=== PATIENT | female | born 1965 | race African-American/Black ===

== ENCOUNTER 2017-11-19 12:27 | Emergency (ER) | payer MEDICARE, MEDICAID ==
[~2017-11-19] VITALS: Ht 182.9 cm; Wt 86.2 kg
[~2017-11-19 12:27] MED LIST: ACETAMINOPHEN-1 EAC1 ORAL; ASPIR 8181 MG ORAL; BP pill; CLARITIN-D 241 EACH PO; COLACE100 MG ORAL; COUMADIN5 MG PO; CYCLOBENZAPRINE10 MG ORAL; Coumadin; FLEXERIL5 MG PO; HYDROCHLOROTHIA25 MG ORAL; IBUPROFEN600 MG ORAL; METOPROLOL TART25 MG PO; MOTRIN600 MG PO; NORCO 5-325 TA1 EACH ORAL; NORCO 5-325 TA1 EACH PO; PAXIL10 MG ORAL; SIMVASTATIN40 MG PO; SYNTHROID50 MCG PO; TAPAZOLE10 MG ORAL
[2017-11-19 12:50] VITALS: BP 141/95
[2017-11-19] MEDS ORDERED: Norco 5mg/325mg tab ORAL ONE (13:30)
[2017-11-19] MEDS ORDERED: Ketorolac 30mg Inj IM ONE (13:30)
[2017-11-19 13:48] LABS: BASOPHILS % (AUTO) 0.7 % (0.0-2.0); EOSINOPHILS % (AUTO) 0.6 % (0.0-3.0); HEMATOCRIT 40.1 % (37.0-47.0); HEMOGLOBIN 13.4 G/DL (12.0-16.0); LYMPHOCYTES % (AUTO) 21.2 % (20.0-45.0); MEAN CORPUSCULAR VOLUME 87 FL (80-99); MONOCYTES % (AUTO) 3.1 % (1.0-10.0); NEUTROPHILS % (AUTO) 74.5 % (45.0-75.0); PLATELET COUNT 178 K/UL (150-450); RED BLOOD COUNT 4.61 M/UL (4.20-5.40); RED CELL DISTRIBUTION WIDTH 13.3 % (11.6-14.8); WHITE BLOOD COUNT 4.5 K/UL (4.8-10.8)
[2017-11-19 13:53] LABS: APPEARANCE,URINE CLEAR; BILIRUBIN, URINE NEGATIVE (NEGATIVE); COLOR,URINE PALE YELLOW; GLUCOSE, URINE (UA) NEGATIVE (NEGATIVE); KETONES,URINE NEGATIVE (NEGATIVE); LEUKOCYTE ESTERASE ,URINE NEGATIVE (NEGATIVE); NITRITE,URINE NEGATIVE (NEGATIVE); PH,URINE 6.5 (4.5-8.0); PROTEIN,URINE 2+ (NEGATIVE); UROBILINOGEN,URINE NORMAL MG/DL (0.0-1.0)
[2017-11-19 14:20] LABS: ANION GAP 10 mmol/L (5-15); BLOOD UREA NITROGEN 13 mg/dL (7-18); CALCIUM 9.8 MG/DL (8.5-10.1); CARBON DIOXIDE 26 MMOL/L (21-32); CHLORIDE 104 MMOL/L (98-107); POTASSIUM 3.7 MMOL/L (3.5-5.1); SODIUM 140 MMOL/L (136-145)
[2017-11-19 14:25] LABS: ALANINE AMINOTRANSFERASE 13 U/L (12-78); ALBUMIN 4.2 G/DL (3.4-5.0); ALKALINE PHOSPHATASE 112 U/L (46-116); ASPARTATE AMINO TRANSFERASE 13 U/L (15-37); BILIRUBIN,TOTAL 0.6 MG/DL (0.2-1.0)
--- NOTE | 2017-11-19 14:33 | Emergency Room Report ---
History of Present Illness General Chief Complaint: Pain Source: Patient Present Illness HPI 52-year-old female patient presents ER complaining of right-sided inguinal pain for the past 3 days. states pain began after moving some boxes from her apartment. Reports history of inguinal hernia surgery in 2013. Reports pain in the same area. Reports able to pass gas and bowel movements are normal. Denies fever, chest pain, shortness of breath. Reports pain with ambulation. denies dysuria, hematuria. presents history of left knee pain that she states "may be exacerbating" her right inguinal pain. Reports history of fracture multiple years ago and had knee replacement. Reports had a second procedure done on October 09 and is scheduled for another procedure to have surgery and knee replaced again . patient reports normally walks with a cane or walker. Allergies: Coded Allergies: No Known Allergies (Verified , 03/05/17) Patient History Past Medical History: see triage record Now: No Reviewed Nursing Documentation: PMH: Agreed; PSxH: Agreed Nursing Documentation-PMH Hx Hypertension: Yes Review of Systems All Other Systems: negative except mentioned in HPI Physical Exam Vital Signs Date Time Temp Pulse Resp B/P (MAP) Pulse Ox O2 Delivery O2 Flow Rate FiO2 11/19/17 12:31 97.9 70 22 141/95 100 Room Air 97.9 Sp02 EP Interpretation: reviewed, normal General Appearance: well appearing, no apparent distress, alert, GCS 15, non- toxic Head: normocephalic, atraumatic Eyes: bilateral eye normal inspection, bilateral eye PERRL ENT: hearing grossly normal, normal pharynx, no angioedema, normal voice, uvula midline, moist mucus membranes Neck: full range of motion Respiratory: lungs clear, normal breath sounds, no rhonchi, no respiratory distress, no accessory muscle use, no wheezing, speaking full sentences Cardiovascular #1: regular rate, rhythm, no edema Gastrointestinal: non tender, soft, no mass, non-distended, no guarding, no rebound Genitourinary: no CVA tenderness, other - no palpable or visible hernia Musculoskeletal: back normal, digits/nails normal, gait/station normal, normal range of motion, no calf tenderness, pelvis stable, other - no leg length discrepancy, tender - right inguinal region Neurologic: alert, oriented x3, responsive, motor strength/tone normal, sensory intact Psychiatric: mood/affect normal Skin: no rash Medical Decision Making PA Attestation Dr. Le is my supervising Physician whom patient management has been discussed with. Diagnostic Impression: Primary Impression: Inguinal muscle strain Additional Impressions: Diverticulosis Left inguinal hernia ER Course Pt. presents to the ED c/o right sided inguinal pain for the past few days. Ddx considered but are not limited to inguinal hernia, femoral hernia, UTI, torsion, sprain, strain, muscle spasm, dislocation. patient able to ambulate, no leg length discrepancy, leg not held in adduction or abduction, low suspicion for dislocation or fracture. no abdominal tenderness to palpation, negative Rovsing, low suspicion for appendicitis. Vital signs: are WNL, pt. is afebrile ER COURSE: PE shows no palpable hernia on right inguinal region. Will order CT abdomen pelvis to rule out incarceration or strangulation. Patient with pain medication. CBC and CMP unremarkable, no elevation WBCs or LFTs UA many epithelial cells, negative for infection, low suspicion for UTI CT abdomen and pelvis shows no right inguinal hernia, small left inguinal hernia noted, diverticulosis and renal calcifications noted. Pain symptoms likely due to muscle strain. Will provide medication for patient. Provided with contact information for orthopedic urgent care advise patient to follow-up with PCP and get referral to direct marketing specialist, request referral to physical therapy and pain management as needed. Informed patient that walking with cane on left side may be leading her body to compensate and cause pain symptoms. Advised on use of walker. Discuss results with the patient. Provided patient with copy of results. Instructed patient to followup with PCP and discuss results of report with patient, discuss need for further treatment and referral. advised patient spot with GI specialist, Urology specialist and direct marketing specialist. Followup outpatient.Provided with contact information for Dr. Yeh for surgical consultation as outpatient. Contact offices to schedule appointment. Patient resting comfortably, in no acute distress, nontoxic appearing. Patient reports pain symptoms improved while in the ER. OK for discharge to home. ER precautions given. DISCHARGE: Rx provided for lidocaine patch Rx provided for Tylenol Rx provided for Robaxin At this time pt is stable for d/c to home. Patient is resting comfortably, in no acute distress, nontoxic appearing, talking without difficulty. Patient to take medications as instructed Will provide with patient care instructions and any necessary prescriptions. Care plan and follow-up instructions provided. Patient instructed to follow-up with primary care provider in 3 - 5 days. Patient questions asked and answered. Patient reports understanding and agreement to treatment plan. ER precautions given. Patient instructed to return to ER immediately for any new or worsening of symptoms including but not limited to increasing SOB, persistent fever, chest pain, intractable vomiting. - Please note that this Emergency Department Report was dictated using [employer] final [employer] technology software, occasionally this can lead to erroneous entry secondary to interpretation by the dictation equipment. Labs Test 11/19/17 13:35 White Blood Count 4.5 K/UL (4.8-10.8) Red Blood Count 4.61 M/UL (4.20-5.40) Hemoglobin 13.4 G/DL (12.0-16.0) Hematocrit 40.1 % (37.0-47.0) Mean Corpuscular Volume 87 FL (80-99) Mean Corpuscular Hemoglobin 28.9 PG (27.0-31.0) Mean Corpuscular Hemoglobin Concent 33.3 G/DL (32.0-36.0) Red Cell Distribution Width 13.3 % (11.6-14.8) Platelet Count 178 K/UL (150-450) Mean Platelet Volume 8.9 FL (6.5-10.1) Neutrophils (%) (Auto) 74.5 % (45.0-75.0) Lymphocytes (%) (Auto) 21.2 % (20.0-45.0) Monocytes (%) (Auto) 3.1 % (1.0-10.0) Eosinophils (%) (Auto) 0.6 % (0.0-3.0) Basophils (%) (Auto) 0.7 % (0.0-2.0) Urine Color Pale yellow Urine Appearance Clear Urine pH 6.5 (4.5-8.0) Urine Specific [address] 1.010 (1.005-1.035) Urine Protein 2+ (NEGATIVE) Urine Glucose (UA) Negative (NEGATIVE) Urine Ketones Negative (NEGATIVE) Urine Blood Negative (NEGATIVE) Urine Nitrite Negative (NEGATIVE) Urine Bilirubin Negative (NEGATIVE) Urine Urobilinogen Normal MG/DL (0.0-1.0) Urine Leukocyte Esterase Negative (NEGATIVE) Urine RBC 0-2 /HPF (0 - 2) Urine WBC 0-2 /HPF (0 - 2) Urine Squamous Epithelial Cells Moderate /LPF (NONE/OCC) Urine Bacteria Occasional /HPF (NONE) Urine HCG, Qualitative Negative (NEGATIVE) Sodium Level 140 MMOL/L (136-145) Potassium Level 3.7 MMOL/L (3.5-5.1) Chloride Level 104 MMOL/L (98-107) Carbon Dioxide Level 26 MMOL/L (21-32) Anion Gap 10 mmol/L (5-15) Blood Urea Nitrogen 13 mg/dL (7-18) Creatinine 1.0 MG/DL (0.55-1.30) Estimat Glomerular Filtration Rate > 60 mL/min (>60) Glucose Level 91 MG/DL (74-106) Calcium Level 9.8 MG/DL (8.5-10.1) Total Bilirubin 0.6 MG/DL (0.2-1.0) Aspartate Amino Transf (AST/SGOT) 13 U/L (15-37) Alanine Aminotransferase (ALT/SGPT) 13 U/L (12-78) Alkaline Phosphatase 112 U/L (46-116) Total Protein 8.2 G/DL (6.4-8.2) Albumin 4.2 G/DL (3.4-5.0) Globulin 4.0 g/dL Albumin/Globulin Ratio 1.0 (1.0-2.7) Lipase 94 U/L (73-393) CT/MRI/US Diagnostic Results CT/MRI/US Diagnostic Results : Imaging Test Ordered: CT abdomen and pelvis Impression Impression: Limited assessment of the GI tract, due to lack of enteric contrast administration. Colonic diverticulosis. No evidence of diverticulitis Tiny fat-containing left inguinal hernia. No other inguinal abnormality Right renal calcifications, likely parenchymal and calyceal Other findings as noted, including presumed surgically absent uterus, degenerative spondylosis, cardiac metallic foreign body-incompletely included, presumably postsurgical. Last Vital Signs Date Time Temp Pulse Resp B/P (MAP) Pulse Ox O2 Delivery O2 Flow Rate FiO2 11/19/17 12:31 97.9 70 22 141/95 100 Room Air 97.9 Status: improved Disposition: HOME, SELF-CARE Condition: Stable Scripts Acetaminophen* (TYLENOL EXTRA STRENGTH*) 500 Mg Tablet 500 MG ORAL Q8H PRN for Prn Headache/Temp > 101, #30 TAB 0 Refills Prov: Onur Masters P.Dulce 11/19/17 Methocarbamol* (ROBAXIN*) 500 Mg Tablet 500 MG PO TID, #21 TAB 0 Refills Prov: Onur Masters 11/19/17 Lidocaine (Lidocaine) 1 Each Adh..patch 5 % TP DAILY for 7 Days, #7 PATCH Prov: Onur Masters 11/19/17 Referrals: NON PHYSICIAN (PCP) Patient Instructions: Diverticulosis, Inguinal Hernia, Adult, [id number], Muscle Strain, [id number] Additional Instructions: Patient instructed to follow up with primary care provider 3-5 and discuss further referral and imaging at that time. Discuss referral to PT. Patient instructed on rest, ice and heat. Do not take muscle relaxant prior to drinking, driving, or operating heavy machinery. Followup with GI and surgical services tech. Take medications as directed. Patient questions asked and answered. ER precautions given, patient instructed to return to ER immediately for any new or worsening of symptoms. Onur Masters Nov 19, 2017 14:33
[2017-11-19] MEDS ORDERED: Morphine Sulfate 4mg/ml Inj (IV USE ONLY) IVP ONE (14:45)
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
[2017-11-19] MEDS ORDERED: TYLENOL EXTRA500 MG ORAL (15:56)
[2017-11-19] MEDS ORDERED: LIDOCAINE700 M1 TP (15:56)
[2017-11-19] MEDS ORDERED: ROBAXIN500 MG PO (15:56)
--- NOTE | 2017-11-19 16:03 | Diagnostic Imaging Report ---
Indication: Abdominal pain, right-sided inguinal pain Technique: Spiral acquisitions obtained through the abdomen and pelvis. No oral contrast utilized, per emergency room physician request No IV contrast utilized, per referring physician request.. Multiplanar reconstructions were generated. Total dose length product 877.95 mGycm. CTDIvol(s) 17.25 mGy. Dose reduction achieved using automated exposure control Comparison: None Findings: Lack of enteric contrast limits assessment of the GI tract. There are scattered colonic diverticula. No evidence of diverticulitis. Normal appendix. No small bowel distention. No free or loculated intraperitoneal gas or fluid is evident. Distal esophagus, stomach, duodenum are unremarkable. No evidence of inguinal abnormality other than a tiny fat-containing left inguinal hernia.. Lack of IV contrast limits assessment of solid organs. The liver, gallbladder, bile ducts, pancreas, spleen, adrenals are all grossly unremarkable. Left kidney is unremarkable. The right kidney demonstrates calcifications which are more likely parenchymal than calyceal. No hydrocephalus or hydroureter, or ureteral calculi. The bladder is unremarkable. The uterus is not visualized, presumed surgically absent. The included lung bases are clear. The bones demonstrate degenerative spondylosis changes. Surgical hardware is seen in the heart. Impression: Limited assessment of the GI tract, due to lack of enteric contrast administration. Colonic diverticulosis. No evidence of diverticulitis Tiny fat-containing left inguinal hernia. No other inguinal abnormality Right renal calcifications, likely parenchymal and calyceal Other findings as noted, including presumed surgically absent uterus, degenerative spondylosis, cardiac metallic foreign body-incompletely included, presumably postsurgical. The CT scanner at [facility] is accredited by the [employer] and the scans are performed using protocols designed to limit radiation exposure to as low as reasonably achievable to attain images of sufficient resolution adequate for diagnostic evaluation.
[2017-11-19 16:27] VITALS: BP 141/95
== END 2017-11-19 16:27 | disposition home or self-care (01) ==
LOC: EMR 13:41
DX: S39.011A Strain of muscle, fascia and tendon of abdomen, initial encounter (principal); X50.9XXA Other and unspecified overexertion or strenuous movements or postures, initial encounter; Y92.039 Unspecified place in apartment as the place of occurrence of the external cause; K57.30 Diverticulosis of large intestine without perforation or abscess without bleeding; K40.90 Unilateral inguinal hernia, without obstruction or gangrene, not specified as recurrent; I10 Essential (primary) hypertension
CPT/HCPCS: 36415; 74176; 80053; 81003; 81025; 83690; 85025; 96372; 96374; 99284; J2270

== ENCOUNTER 2018-03-29 13:49 | Emergency (ER) | payer MEDICAID, MEDICARE, OTHER ==
[~2018-03-29] VITALS: Ht 180.3 cm; Wt 81.6 kg
[~2018-03-29 13:49] MED LIST changes: +LIDOCAINE700 M1 TP; +ROBAXIN500 MG PO; +TYLENOL EXTRA500 MG ORAL
[2018-03-29] MEDS ORDERED: BRILINTA90 MG PO (13:58)
[2018-03-29] MEDS ORDERED: LEVOTHYROXINE125 MCG ORAL (13:58)
[2018-03-29] MEDS ORDERED: Acetaminophen 500mg (ES) tab PO ONE (14:30)
[2018-03-29] MEDS ORDERED: ROBAXIN-750750 MG PO (15:43)
[2018-03-29] MEDS ORDERED: IBUPROFEN600 MG ORAL (15:43)
[2018-03-29 15:46] VITALS: BP 142/78
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
== END 2018-03-29 15:46 | disposition home or self-care (01) ==
LOC: EMR 14:10
DX: S40.011A Contusion of right shoulder, initial encounter (principal); S80.02XA Contusion of left knee, initial encounter; V43.52XA Car driver injured in collision with other type car in traffic accident, initial encounter; Y92.410 Unspecified street and highway as the place of occurrence of the external cause; I11.0 Hypertensive heart disease with heart failure; I25.2 Old myocardial infarction; Z95.0 Presence of cardiac pacemaker; Z86.73 Personal history of transient ischemic attack (TIA), and cerebral infarction without residual deficits; Z90.710 Acquired absence of both cervix and uterus; Z96.652 Presence of left artificial knee joint
CPT/HCPCS: 99283

== ENCOUNTER 2018-05-01 17:39 | Inpatient (IN) | payer MEDICARE, OTHER ==
[~2018-05-01] VITALS: Ht 180.3 cm; Wt 95.3 kg
[~2018-05-01 17:39] MED LIST changes: +BRILINTA90 MG PO; +LEVOTHYROXINE125 MCG ORAL; +ROBAXIN-750750 MG PO
--- NOTE | 2018-05-01 17:40 | NUR ---
ED Nurse Note: PT WALKED IN TO ER TODAY FROM HOME. AOX4. PT C/O / LEFT SIDED CHEST PAIN RADIATING TO LEFT ARM AND SOB X 3 DAYS AGO. NORMAL SINUS RHYTHM ON MONITOR, RR20 @ 100% O2 SATURATION ON RA. NO SIGNS OF RESPIRATORY DISTRESS OR RETRACTIONS NOTED.
[2018-05-01] MEDS ORDERED: UNOBMED (17:41)
[2018-05-01 17:42] VITALS: BP 162/97
[2018-05-01] MEDS ORDERED: Nitroglycerin Subl 0.4mg tab SL PRN (18:00)
[2018-05-01] MEDS ORDERED: Aspirin Baby 81mg ORAL ONE (18:00)
--- NOTE | 2018-05-01 18:00 | NUR ---
ED Nurse Note: First nitro given to patient
--- NOTE | 2018-05-01 18:05 | NUR ---
ED Nurse Note: 2nd nitro given to patient, patient still complains of chest pain after first round of nitro
--- NOTE | 2018-05-01 18:11 | NUR ---
ED Nurse Note: XRAY AT BEDSIDE.
[2018-05-01 18:20] LABS: BASOPHILS % (AUTO) 0.8 % (0.0-2.0); HEMATOCRIT 36.3 % (37.0-47.0); HEMOGLOBIN 12.2 G/DL (12.0-16.0); LYMPHOCYTES % (AUTO) 42.5 % (20.0-45.0); MEAN CORPUSCULAR VOLUME 86 FL (80-99); MONOCYTES % (AUTO) 4.3 % (1.0-10.0); NEUTROPHILS % (AUTO) 50.4 % (45.0-75.0); PLATELET COUNT 177 K/UL (150-450); RED BLOOD COUNT 4.22 M/UL (4.20-5.40); RED CELL DISTRIBUTION WIDTH 13.5 % (11.6-14.8); WHITE BLOOD COUNT 4.3 K/UL (4.8-10.8)
[2018-05-01 18:26] LABS: ANION GAP 8 mmol/L (5-15); BLOOD UREA NITROGEN 14 mg/dL (7-18); CALCIUM 9.2 MG/DL (8.5-10.1); CARBON DIOXIDE 31 MMOL/L (21-32); CHLORIDE 102 MMOL/L (98-107); CREATININE 0.9 MG/DL (0.55-1.30); POTASSIUM 3.5 MMOL/L (3.5-5.1); SODIUM 140 MMOL/L (136-145)
[2018-05-01 18:43] LABS: ALANINE AMINOTRANSFERASE 15 U/L (12-78); ALBUMIN 3.7 G/DL (3.4-5.0); ALKALINE PHOSPHATASE 121 U/L (46-116); ASPARTATE AMINO TRANSFERASE 12 U/L (15-37); BILIRUBIN,TOTAL 0.3 MG/DL (0.2-1.0); CKMB 1.3 NG/ML (0.0-3.6); CREATINE KINASE 40 U/L (26-308)
--- NOTE | 2018-05-01 18:50 | NUR ---
ED Nurse Note: URINE COLLECTED AND SENT TO LAB.
[2018-05-01] MEDS ORDERED: Albuterol/Ipratropium 3ml neb HHN ONE (19:00)
[2018-05-01 19:13] LABS: APPEARANCE,URINE CLEAR; BILIRUBIN, URINE NEGATIVE (NEGATIVE); COLOR,URINE PALE YELLOW; GLUCOSE, URINE (UA) NEGATIVE (NEGATIVE); KETONES,URINE NEGATIVE (NEGATIVE); LEUKOCYTE ESTERASE ,URINE 1+ (NEGATIVE); NITRITE,URINE NEGATIVE (NEGATIVE); PH,URINE 7 (4.5-8.0); PROTEIN,URINE NEGATIVE (NEGATIVE); UROBILINOGEN,URINE 1 MG/DL (0.0-1.0)
[2018-05-01] MEDS ORDERED: Dexamethasone 4mg/ml vial IVP ONE (19:15)
--- NOTE | 2018-05-01 19:18 | NUR ---
ED Nurse Note: REPORT GIVEN TO JOSE ROJAS.
--- NOTE | 2018-05-01 19:19 | NUR ---
ED Nurse Note: Received report from Karime/ JOSE.
--- NOTE | 2018-05-01 20:22 | Emergency Room Report ---
History of Present Illness General Chief Complaint: Chest Pain Source: Patient, Medical Record Present Illness HPI 52-year-old female presented for increased chest tightness. Patient reports having prior history of asthma. She reports having increased pressure sensation. This radiated to her neck patient stated she had intermittent chest tightness beginning approximately 3 days ago. She denies any fever. She denies any cough. Patient had prior history of pacemaker placement. She denies any prior history of smoking.She had onset of symptoms during rest. Allergies: Coded Allergies: No Known Allergies (Verified , 03/05/17) Patient History Past Medical History: see triage record Last Menstrual Period: menopause Reviewed Nursing Documentation: PMH: Agreed; PSxH: Agreed Nursing Documentation-PMH Past Medical History: No History, Except For Hx Cardiac Problems: Yes - CHF, A-fib, heart attack 2006, hyperthyroid Hx Hypertension: Yes Hx Pacemaker: Yes Hx Cerebrovascular Accident: Yes - 2010 Review of Systems All Other Systems: negative except mentioned in HPI Physical Exam Vital Signs Date Time Temp Pulse Resp B/P (MAP) Pulse Ox O2 Delivery O2 Flow Rate FiO2 05/01/18 17:39 98.2 93 16 162/97 100 Room Air 05/01/18 19:14 21 Sp02 EP Interpretation: reviewed, normal General Appearance: normal inspection, well appearing, no apparent distress, alert, GCS 15 Head: atraumatic ENT: normal ENT inspection, hearing grossly normal, normal voice Neck: normal inspection, full range of motion, supple, no bony tend Respiratory: normal inspection, lungs clear, normal breath sounds, no respiratory distress, no retraction, no wheezing Cardiovascular #1: regular rate, rhythm, no edema Gastrointestinal: normal inspection, normal bowel sounds, non tender, soft, no guarding, no hernia Genitourinary: no CVA tenderness Musculoskeletal: normal inspection, back normal, normal range of motion Neurologic: normal inspection, alert, oriented x3, responsive, school janitor III-XII nml as tested, speech normal Psychiatric: normal inspection, judgement/insight normal, mood/affect normal Skin: normal inspection, normal color, no rash Medical Decision Making Diagnostic Impression: Primary Impression: ACS (acute coronary syndrome) ER Course Patient presented for chest pain. Differential diagnosis included but was not limited to acute coronary syndrome, pulmonary embolism, pneumonia, aortic dissection, shingles, pneumothorax, aortic dissection, esophageal rupture, pericarditis. Because of complexity of patient's case laboratory testing and imaging studies were ordered. EKG interpreted by me showed paced rhythm. Patient was given aspirin as well as nitroglycerin without any improvement.Patient was also given Decadron as well as breathing treatments.Patient is noted to have prior pacemaker placement. Given the patient's age feel that an ongoing chest pressure until it inpatient management is advisable.Patient was discussed with Dr. Kun Steele for inpatient management. Labs Test 05/01/18 17:55 05/01/18 18:44 White Blood Count 4.3 K/UL (4.8-10.8) Red Blood Count 4.22 M/UL (4.20-5.40) Hemoglobin 12.2 G/DL (12.0-16.0) Hematocrit 36.3 % (37.0-47.0) Mean Corpuscular Volume 86 FL (80-99) Mean Corpuscular Hemoglobin 28.9 PG (27.0-31.0) Mean Corpuscular Hemoglobin Concent 33.6 G/DL (32.0-36.0) Red Cell Distribution Width 13.5 % (11.6-14.8) Platelet Count 177 K/UL (150-450) Mean Platelet Volume 7.3 FL (6.5-10.1) Neutrophils (%) (Auto) 50.4 % (45.0-75.0) Lymphocytes (%) (Auto) 42.5 % (20.0-45.0) Monocytes (%) (Auto) 4.3 % (1.0-10.0) Eosinophils (%) (Auto) 2.0 % (0.0-3.0) Basophils (%) (Auto) 0.8 % (0.0-2.0) Sodium Level 140 MMOL/L (136-145) Potassium Level 3.5 MMOL/L (3.5-5.1) Chloride Level 102 MMOL/L (98-107) Carbon Dioxide Level 31 MMOL/L (21-32) Anion Gap 8 mmol/L (5-15) Blood Urea Nitrogen 14 mg/dL (7-18) Creatinine 0.9 MG/DL (0.55-1.30) Estimat Glomerular Filtration Rate > 60 mL/min (>60) Glucose Level 143 MG/DL (74-106) Calcium Level 9.2 MG/DL (8.5-10.1) Total Bilirubin 0.3 MG/DL (0.2-1.0) Aspartate Amino Transf (AST/SGOT) 12 U/L (15-37) Alanine Aminotransferase (ALT/SGPT) 15 U/L (12-78) Alkaline Phosphatase 121 U/L (46-116) Total Creatine Kinase 40 U/L (26-308) Creatine Kinase MB 1.3 NG/ML (0.0-3.6) Creatine Kinase MB Relative Index 3.2 Troponin I 0.000 ng/mL (0.000-0.056) Pro-B-Type Natriuretic Peptide 12 pg/mL (0-125) Total Protein 7.3 G/DL (6.4-8.2) Albumin 3.7 G/DL (3.4-5.0) Globulin 3.6 g/dL Albumin/Globulin Ratio 1.0 (1.0-2.7) Lipase 151 U/L (73-393) Urine Color Pale yellow Urine Appearance Clear Urine pH 7 (4.5-8.0) Urine Specific [place] 1.010 (1.005-1.035) Urine Protein Negative (NEGATIVE) Urine Glucose (UA) Negative (NEGATIVE) Urine Ketones Negative (NEGATIVE) Urine Blood Negative (NEGATIVE) Urine Nitrite Negative (NEGATIVE) Urine Bilirubin Negative (NEGATIVE) Urine Urobilinogen 1 MG/DL (0.0-1.0) Urine Leukocyte Esterase 1+ (NEGATIVE) Urine RBC 0-2 /HPF (0 - 2) Urine WBC 2-4 /HPF (0 - 2) Urine Squamous Epithelial Cells Few /LPF (NONE/OCC) Urine Bacteria Few /HPF (NONE) Urine Opiates Screen Positive (NEGATIVE) Urine Barbiturates Screen Negative (NEGATIVE) Phencyclidine (PCP) Screen Negative (NEGATIVE) Urine Amphetamines Screen Negative (NEGATIVE) Urine Benzodiazepines Screen Negative (NEGATIVE) Urine Cocaine Screen Negative (NEGATIVE) Urine Marijuana (THC) Screen Positive (NEGATIVE) EKG Diagnostic Results Rate: normal Rhythm: other - paced Rhythm Strip Diag. Results EP Interpretation: yes Rhythm: no PVC's, no ectopy Last Vital Signs Date Time Temp Pulse Resp B/P (MAP) Pulse Ox O2 Delivery O2 Flow Rate FiO2 05/01/18 19:26 64 12 100 Room Air 21 05/01/18 18:00 145/88 05/01/18 17:42 98.4 Status: unchanged Disposition: ADMITTED INPATIENT Condition: Serious Referrals: [facility],REFERRING (PCP) Rowdy Aaron MD May 01, 2018 20:22
[2018-05-01] MEDS ORDERED: Dexamethasone 4mg/ml vial ONE (21:28)
--- NOTE | 2018-05-01 22:50 | NUR ---
TRANSFER TO FLOOR: Patient transferred to Tele/206 as ordered . Report given to Geovani/ RN. Belongings ent with Pt and rechecked with RN. Pt is A/O X 4.
--- NOTE | 2018-05-02 | NUR ---
NURSE NOTES: Report received from Tiffanie RN. Patient is transferred via gurney from ER to Telemetry unit without any incident. Patient is AOx4 and able to make needs known. Patient is complaining of 10/10 chest tightness, patient refused nitroglycerin; will contact MD for appropriate intervention. IV site is asymptomatic, patent, and intact. VS are as follows: BP: 130/79, HR: 69, T: 97.2, O2: 99% RA. Patient is AV pacing on the monitor. Belongings list checked and signed with SOUND TESTER. Bed is in lowest position with side rails up x2 and brakes are engaged. Bed alarm is on. Call lightw tihin reach. Will continue to monitor.
[2018-05-02 00:18] VITALS: BP 130/79
--- NOTE | 2018-05-02 00:20 | NUR ---
NURSE NOTES: Contacted Dr. Steele and relayed abnormal lab values and patient's complain of 10/10 chest pain. New orders noted and carried out.
--- NOTE | 2018-05-02 01:57 | NUR ---
NURSE NOTES: EMT arrived in the unit to berry picker patient. Upon reviewing ER notes, at 05/01/18 2154, ER admitting approved patient's stay in [facility] Patient refuses to get transferred to [facility] at this time. ER fire extinguisher charger spoke to 2E fire extinguisher charger stating that the patient's insurance "may not cover" the expenses if the patient stays in [facility]. However, the insurance will cover the expenses if she agrees to get transferred to [facility]. Phone Manager notified and recommended case management consult. Primary RN and fire extinguisher charger notified the patient regarding the situation and patient decides to stay overnight and speak to a pillowcase sewer about the problem.
--- NOTE | 2018-05-02 04:09 | NUR ---
NURSE NOTES: Zoraida, the case assistant at [facility], contacted the unit to confirm transfer. asphalt layer and primary RN notified the case assistant regarding automatic admission to the unit due to extended of 2 hour waiting period. Per case assistant, she did not approve admission of the patient and had already made arrangement with transport and room assignment at [facility]. Primary RN and insulation cupola charger explained the situation patient multiple times, however, patient strongly refuses to be transferred to another hospital and is willing to sign against medical advice. Patient also refused blood draws at this morning.
--- NOTE | 2018-05-02 06:59 | NUR ---
NURSE NOTES: Notified Dr. Steele regarding patient's situation and possible leaving against medical advice.
--- NOTE | 2018-05-02 08:05 | NUR ---
NURSE NOTES: Patient signed against medical advice this morning due to financial situation with insurance. Charge nurse made aware. Contated Dr. Steele regarding AMA. VSS. air sampling and monitoring removed and returned to the monitor and storage bin tender. IV site is removed, asymptomatic, no hematoma noted. Belongings given to the patient. Patient is informed about the risks of signing AMA.
--- NOTE | 2018-05-02 08:10 | NUR ---
CASE MANAGEMENT:REVIEW 05/01/18 @ 1739 52 YR OLD FEMALE TO ER CC: CHEST PAIN AND SOB X3 DAYS SI: ACUTE CORONARY SYNDROME 98.3 93 16 162/97 100% ON RA TROPONIN(-) URINE TOX(+) OPIATES AND THC IS: ASA PO X1 DUONEB HHN X1 IV DECADRON X1 CXR : TO TELEMETRY @ 3735 05/02/18 SIGNED OUT AMA @ 0835
--- NOTE | 2018-05-02 10:51 | Diagnostic Imaging Report ---
Indication: Chest pain Technique: One view of the chest Comparison: none Findings: There is a left chest pacemaker. Lungs and pleural spaces are clear. The heart size is normal. Impression: No acute process
--- NOTE | 2018-05-02 13:17 | Cardiology Report ---
APPROVED REPORT EKG Measurement Heart [id number] Normal sinus rhythm with Dual-Chamber Pacemaker Nonspecific T wave abnormality Prolonged QT Abnormal ECG
--- NOTE | 2018-05-02 15:01 | History and Physical Report ---
DATE OF ADMISSION: 05/01/2018 HISTORY OF PRESENT ILLNESS: This is a 52-year-old female, who came in to the hospital with chest tightness. She has history of previous asthma. She was also noted to be hypotensive. There is no underlying history of CAD, however, she does have history of permanent pacemaker, however, on subsequent discussion, she reported she also has history of MD and heart failure. The patient was also noted to be hypothyroid. The patient was admitted to the hospital, however, this morning, she reports that she would like to be discharged home as she is not comfortable being transferred to another hospital, which her insurance mandates. ALLERGIES: None. PAST MEDICAL HISTORY: Notable for CHF, CAD, hypothyroidism, AFib, asthma, permanent pacemaker, and hypertension. There is also questionable history of previous CVA. REVIEW OF SYSTEMS: Denies any headaches, hematemesis, melena, hematochezia, night sweats, or weight loss. PHYSICAL EXAMINATION: GENERAL: Reveals a 52-year-old female. VITAL SIGNS: Blood pressure is 140/80, heart rate 64, respirations 16, O2 saturation 98% on room air, she is afebrile. HEENT: Unremarkable. LUNGS: Clear breath sounds bilaterally. HEART: Normal heart sounds. ABDOMEN: Soft. EXTREMITIES: There is no edema. NEUROLOGIC: Nonfocal. LABORATORY DATA: Laboratory testing is unremarkable with normal CBC and BMP. Troponin is negative. EKG showed normal sinus rhythm. Urine toxicology is positive for marijuana and opiates. Urinalysis is negative. Imaging studies, none except as documented by the ER physician. IMPRESSION: 1. Chest pain. 2. Asthma. 3. Multiple medical problems consisting of previous CVA, CHF, atrial fibrillation, permanent pacemaker, and hypertension. DISCUSSION: Admitted to the hospital. Continue home medications. At this point, however, the patient is keen on leaving despite the medical advice. She would like to see her regular doctor and not be transferred to another hospital. It is my understanding that the patient will leave AMA despite discussion with the staff. Kun Steele M.D. DR: JANE JOB#: [id number] CC:
--- NOTE | 2018-05-04 12:06 | Discharge Summary ---
Discharge Summary Discharge Summary _ DATE OF ADMISSION: 05/01/2018 DATE OF DISCHARGE: 05/02/2018 Patient left AGAINST MEDICAL ADVICE REASON FOR ADMISSION: 52 years old female with past medical history of coronary artery disease, atrial fibrillation, congestive heart failure, permanent pacemaker, hypertension , asthma, hypothyroidism, hx of CVA in 2010, presented to the hospital with chief complaint of chest tightness. Upon evaluation vital signs were unremarkable. Laboratory workup revealed no leukocytosis ,stable chemistry Troponin was negative. EKG revealed paced rhythm. No PVC no ectopy. Urine toxicology screen was positive for marijuana and opiates. Urinalysis revealed no evidence of UTI. Chest x-ray revealed no acute cardiopulmonary pathology. Evidence of left chest pacemaker. In ED patient received aspirin and nitroglycerin without significant improvement. Patient also received Decadron and handheld nebulizing treatment with bronchodilator. Patient subsequently admitted to telemetry floor for further management. HOSPITAL COURSE: Patient admitted to telemetry floor. Home medications were resumed. Patient continued on antiplatelet therapy with aspirin and Nitro glycerin as needed. Pulse oximetry was stable on room air. Patient declined to be transferred to another hospital as her insurance mandated. She preferred to see her own primary care provider. Patient decided to sign AGAINST MEDICAL ADVICE. The risks and consequences of signing AGAINST MEDICAL ADVICE were discussed with patient in detail. Patient verbalized understanding, nevertheless signed AMA form and left. FINAL DIAGNOSES Chest pain Asthma Congestive heart failure CAD Atrial fibrillation Hypertension Permanent pacemaker History of CVA I have been assigned to dictate discharge summary for this account. I was not involved in the patient's management. Gaye Chung NP May 04, 2018 12:06
--- NOTE | 2018-05-04 16:49 | NUR ---
CASE MANAGEMENT: CM review and clinical information (face sheet/ ER MD notes/ H&P/ ) [facility] @ [phone]
--- NOTE | 2018-05-13 17:06 | Physician Query ---
--------- THIS DOCUMENT IS A PERMANENT PART OF THE MEDICAL RECORD --------- PLEASE COMPLETE THE DOCUMENT BEFORE SIGNING Dear Dr. REILLY Date: 05/13/18 Visually Impaired Teacher/CDS' Name : PADMINI HUNT Exercise your independent professional judgment when responding to query. Questions asked do not imply particular answer is desired or expected. We greatly appreciate your clarification on this issue. Clinical Documentation States:REASON FOR ADMISSION: 52 years old female with past medical history of coronary artery disease, atrial fibrillation, congestive heart failure, permanent pacemaker, hypertension , asthma, hypothyroidism, hx of CVA in 2010, presented to the hospital with chief complaint of chest tightness. Upon evaluation vital signs were unremarkable. Laboratory workup revealed no leukocytosis ,stable chemistry Troponin was negative. EKG revealed paced rhythm. No PVC no ectopy. Urine toxicology screen was positive for marijuana and opiates. Urinalysis revealed no evidence of UTI. Chest x-ray revealed no acute cardiopulmonary pathology. Evidence of left chest pacemaker. In ED patient received aspirin and nitroglycerin without significant improvement. Please document the suspected etiology of Chest Pain: a.Type: []Cardiac [x]Non-cardiac []Unspecified b.Etiology - cardiac [] Aortic dissection []Mitral valve prolapsed [] Acute myocardial infarction []Spasm of coronary arteries [] Coronary Artery Disease []Pericarditis c.Etiology - non-cardiac [] Anxiety []Pleurisy [] Cancer []Pneumonia, type [] Costochondritis []Pneumothorax [] GERD/Esophagitis []Pulmonary embolism [x] Unable to determine []Other: JOHNATHAN REILLY M.D. DATE & TIME [facility]
== END 2018-05-02 07:30 | disposition left against medical advice (07) | DRG 313 ==
LOC: EMR 18:00 → 2E 21:54 → EDBEDREQ 22:14
DX: R07.9 Chest pain, unspecified (principal); J45.909 Unspecified asthma, uncomplicated; I11.0 Hypertensive heart disease with heart failure; I50.9 Heart failure, unspecified; I25.10 Atherosclerotic heart disease of native coronary artery without angina pectoris; I48.91 Unspecified atrial fibrillation; Z95.0 Presence of cardiac pacemaker; Z86.73 Personal history of transient ischemic attack (TIA), and cerebral infarction without residual deficits; I25.2 Old myocardial infarction; E05.90 Thyrotoxicosis, unspecified without thyrotoxic crisis or storm
CPT/HCPCS: 36415; 71045; 80053; 80307; 81003; 82550; 82553; 83690; 83880; 84484; 85025; 86710; 93005; 94640; 94664; 96374; 99285; J7620

== ENCOUNTER 2018-07-27 19:16 | Emergency (ER) | payer MEDICARE ==
[~2018-07-27] VITALS: Ht 165.1 cm; Wt 68.0 kg
[~2018-07-27 19:16] MED LIST changes: +UNOBMED
--- NOTE | 2018-07-27 19:35 | NUR ---
ED Nurse Note: RECIEVED PT FROM HOME, DROVE HERSELF HERE WITH C/O EYE IRRITATION WITH ITCHING, BOTH EYES ARE RED AND SWOLLEN, PT COMPLAINS MORE ON LEFT EYE, NOTED SINCE AM, DENIES ALLERGIES OR INJURY, PT HAS PAIN AND VERY UNCOMFORTABLE, WILL RESUME CARE ORDERED AND CONTINUE TO CLOSELY MONITOR.
[2018-07-27] MEDS ORDERED: Fluorescein Strips BOTH EYES ONE (19:45)
[2018-07-27] MEDS ORDERED: Tetracaine 0.5% Opth 4ml Soln LEFT EYE ONE (19:45)
--- NOTE | 2018-07-27 19:55 | Emergency Room Report ---
History of Present Illness General Chief Complaint: Eye Problems Source: Patient Present Illness HPI 52 YO Female presents with Bilateral eye injection, purulent d/c, lacrimation and 7/10 in severity pain s/p falling asleep with cucumbers on her eyes. She denies photophobia and states the pain in her eyes is constant. She states the left eye is more painful than the right and she feels pain behind the eye. She denies scratching or FB sensation. She denies trauma to the eyes. She reports her vision is unchanged, she denies contact lens use and states she only uses magnifying "reading" glasses. Allergies: Coded Allergies: No Known Allergies (Verified , 03/05/17) Patient History Past Medical History: see triage record Past Surgical History: none Pertinent Family History: none Last Menstrual Period: n/a Now: No Reviewed Nursing Documentation: PMH: Agreed; PSxH: Agreed Nursing Documentation-PMH Past Medical History: No History, Except For Hx Cardiac Problems: Yes - CHF, A-fib, heart attack 2006, hyperthyroid Hx Hypertension: Yes Hx Pacemaker: Yes Hx Cancer: No Hx Gastrointestinal Problems: No Hx Cerebrovascular Accident: Yes - 2010 Review of Systems All Other Systems: negative except mentioned in HPI Physical Exam Vital Signs Date Time Temp Pulse Resp B/P (MAP) Pulse Ox O2 Delivery O2 Flow Rate FiO2 07/27/18 19:22 97.9 66 18 141/91 (108) 98 Room Air Sp02 EP Interpretation: reviewed, normal General Appearance: no apparent distress, alert, GCS 15, non-toxic Head: normocephalic, atraumatic Eyes: bilateral eye normal inspection, bilateral eye PERRL, bilateral eye EOMI , bilateral eye visual acuity - 20/30, bilateral eye Scleral Injection, bilateral eye other - pain not relieved with tetricane eye drops, increased uptake laterally in the left eye. bilateral upper and lower lid swelling. Normal tonopressure measurements bilaterally. ENT: hearing grossly normal, normal voice Neck: full range of motion Respiratory: lungs clear, normal breath sounds, speaking full sentences Cardiovascular #1: regular rate, rhythm Musculoskeletal: back normal, gait/station normal, normal range of motion, non- tender Neurologic: alert, oriented x3, responsive, motor strength/tone normal, sensory intact, speech normal, grossly normal Psychiatric: judgement/insight normal Skin: normal color, no rash, warm/dry, well hydrated Medical Decision Making PA Attestation Dr. Herr is my supervising Physician whom patient management has been discussed with. Diagnostic Impression: Primary Impression: Conjunctivitis Qualified Codes: H10.33 - Unspecified acute conjunctivitis, bilateral ER Course 52 YO Female presents with Bilateral eye injection, purulent d/c, lacrimation and 7/10 in severity pain s/p falling asleep with cucumbers on her eyes. She denies photophobia and states the pain in her eyes is constant. She states the left eye is more painful than the right and she feels pain behind the eye. She denies scratching or FB sensation. She denies trauma to the eyes. She reports her vision is unchanged, she denies contact lens use and states she only uses magnifying "reading" glasses. Ddx considered but are not limited to: corneal abrasion, acute glaucoma, globe rupture, FB, Corneal Ulcer, conjunctivitis. Iridis Vital signs: are WNL, pt. is afebrile H&PE are most consistent with: bacterial conjunctivitis +/- Iridis. ORDERS: - Tetracaine and Fluorescein Stain- SLIT LAMP Exam - Chester-pressures between 6-12 bilaterally. Pt. DID NOT HAVE relief of pain with tetracaine drops. there was negative evidence of Fb, deep ulcer, or rupture. ED INTERVENTIONS: -Motrin PO -Tylenol PO Consult with Ophthalmology ( Dr. Garcia) whom agrees with cipro abx drops, pain management, and follow up tomorrow at his office. pt. is provided with his office information. DISCHARGE: At this time pt. is stable for d/c to home. Will provide printed patient care instructions, and any necessary prescriptions. Care plan and follow up instructions have been discussed with the patient prior to discharge. . Last Vital Signs Date Time Temp Pulse Resp B/P (MAP) Pulse Ox O2 Delivery O2 Flow Rate FiO2 07/27/18 19:22 97.9 66 18 141/91 (108) 98 Room Air Status: improved Disposition: HOME, SELF-CARE Condition: Stable Physician Consult: Dr. Crawford ( ophthalmology) Scripts Hydrocodone Bit/Acetaminophen 5-325* (NORCO 5-325*) 1 Each Tablet 1 TAB ORAL Q6H PRN for For Pain, #12 TAB 0 Refills Prov: Matilde Torres 07/27/18 Ofloxacin (OCUFLOX) 5 Ml Drops 2 DROP OP TID, #5 ML Prov: Matilde Torres 07/27/18 Patient Instructions: Bacterial Conjunctivitis Additional Instructions: Take medications as directed. Follow up with a Employee Benefits Attorney in 3 days, even if your symptoms have resolved. --Please review list of primary care clinics, if you do not already have a primary care provider Return sooner to ED if new symptoms occur, or current symptoms become worse. - Please note that this Emergency Department Report was dictated using Signicatbuilding mover technology software, occasionally this can lead to erroneous entry secondary to interpretation by the dictation equipment. Matilde Torres Jul 27, 2018 19:55
[2018-07-27] MEDS ORDERED: OCUFLOX5 ML OP (19:56)
[2018-07-27 21:45] VITALS: BP 146/87
[2018-07-27] MEDS ORDERED: Acetaminophen 500mg (ES) tab ORAL ONE (21:45)
[2018-07-27] MEDS ORDERED: NORCO 5-325 TA1 EACH ORAL (21:45)
[2018-07-27 21:55] VITALS: BP 146/87
--- NOTE | 2018-07-27 21:55 | NUR ---
ED Nurse Note: PT BEING D/C TO HOME, MEDS GIVEN FOR PAIN, PT GIVEN F/U INFO, AFTER CARE INSTRUCTIONS AND RE-VERBALIZES PROPER MEDICATION ADMINISTRATION, PT IS AMBULATORY, NO VISUAL DEFICITS AND DENIES NOT BEING ABLE TO SEE, PT ARMBAND REMOVED, NAD NOTED DURING D/C TO HOME.
== END 2018-07-27 21:50 | disposition home or self-care (01) ==
LOC: EMR 20:05
DX: H10.33 Unspecified acute conjunctivitis, bilateral (principal); Z86.73 Personal history of transient ischemic attack (TIA), and cerebral infarction without residual deficits; I11.0 Hypertensive heart disease with heart failure; I25.2 Old myocardial infarction; I10 Essential (primary) hypertension
CPT/HCPCS: 99282

== ENCOUNTER 2019-09-22 12:57 | Inpatient (IN) | payer MEDICARE, OTHER ==
[~2019-09-22] VITALS: Ht 182.9 cm; Wt 94.8 kg
[~2019-09-22 12:57] MED LIST changes: +OCUFLOX5 ML OP
[2019-09-22 13:12] VITALS: BP 138/88
[2019-09-22] MEDS ORDERED: Nitroglycerin Subl 0.4mg tab SL PRN (13:15)
[2019-09-22] MEDS ORDERED: Aspirin Baby 81mg ORAL ONE (13:15)
[2019-09-22 13:40] LABS: HEMATOCRIT 36.8 % (37.0-47.0); HEMOGLOBIN 12.2 G/DL (12.0-16.0); MEAN CORPUSCULAR VOLUME 90 FL (80-99); PLATELET COUNT 153 K/UL (150-450); RED CELL DISTRIBUTION WIDTH 13.1 % (11.6-14.8); WHITE BLOOD COUNT 2.6 K/UL (4.8-10.8)
--- NOTE | 2019-09-22 13:45 | Diagnostic Imaging Report ---
Procedure: XRAY Chest 1v Reason for study: Chest pain Comparison films: 05/01/2018. FINDINGS: Cardiac pacer remains in place. There is mild central vascular fullness. No santy infiltrate or edema seen. Cardiac and mediastinal silhouette are within normal limits. CP angles are sharp. The bony thorax appear unremarkable. IMPRESSION: Mild vascular congestion.
[2019-09-22 13:53] LABS: ANION GAP 5 mmol/L (5-15); BLOOD UREA NITROGEN 12 mg/dL (7-18); CALCIUM 9.5 MG/DL (8.5-10.1); CARBON DIOXIDE 32 MMOL/L (21-32); CHLORIDE 105 MMOL/L (98-107); CREATININE 0.9 MG/DL (0.55-1.30); POTASSIUM 3.8 MMOL/L (3.5-5.1); SODIUM 142 MMOL/L (136-145)
[2019-09-22 13:57] LABS: INR 0.9 (0.9-1.1)
[2019-09-22] MEDS ORDERED: Enoxaparin 100mg Inj SUBQ SCH (14:00)
--- NOTE | 2019-09-22 14:04 | Emergency Room Report ---
History of Present Illness General Chief Complaint: Chest Pain Source: Patient Present Illness HPI Patient is a 53-year-old female presents after increased chest pain. Onset of symptoms yesterday. Reports having constant pain. Denies any vomiting or fever. Prior history of pacemaker placement as well as hyperthyroidism. Had been taking hydrochlorothiazide as increased nitroglycerin without any improvement in pain. Patient is also taking metoprolol. Previous history of atrial fibrillation. Patient had no recent cough. Denies any shortness of breath. Reports having pain to her neck. Onset during rest. Denies any leg pain or swelling.Denies any previous cardiac stenting or heart attack. States she is not currently on anticoagulation Allergies: Coded Allergies: No Known Allergies (Verified , 03/05/17) COVID-19 Screening Contact w/high risk pt: No Experienced COVID-19 symptoms?: No COVID-19 Testing performed [employer]: No Patient History Past Medical History: see triage record Past Surgical History: pacemaker Last Menstrual Period: na Reviewed Nursing Documentation: PMH: Agreed; PSxH: Agreed Nursing Documentation-PMH Past Medical History: No History, Except For Hx Cardiac Problems: Yes - CHF, A-fib, heart attack 2006, hyperthyroid, bradycardia Hx Hypertension: Yes Hx Pacemaker: Yes Hx Cancer: No Hx Gastrointestinal Problems: No Hx Cerebrovascular Accident: Yes - 2010 Review of Systems All Other Systems: negative except mentioned in HPI Physical Exam Vital Signs Date Time Temp Pulse Resp B/P (MAP) Pulse Ox O2 Delivery O2 Flow Rate FiO2 09/22/19 13:01 98.8 67 22 143/93 (110) 95 Room Air Sp02 EP Interpretation: reviewed, normal General Appearance: normal inspection, well appearing, no apparent distress, alert, GCS 15, non-toxic Head: atraumatic ENT: normal ENT inspection, hearing grossly normal, normal voice Neck: normal inspection, full range of motion, supple, no bony tend Respiratory: normal inspection, lungs clear, normal breath sounds, no respiratory distress, no retraction, no wheezing Cardiovascular #1: regular rate, rhythm, no edema Gastrointestinal: normal inspection, normal bowel sounds, non tender, soft, no guarding, no hernia Genitourinary: no CVA tenderness Musculoskeletal: normal inspection, back normal, normal range of motion Neurologic: alert, motor strength/tone normal, senior mechanical project manager III-XII nml as tested, oriented x3, responsive, speech normal, normal inspection Psychiatric: normal inspection, judgement/insight normal, mood/affect normal Skin: no rash Medical Decision Making Diagnostic Impression: Primary Impression: ACS (acute coronary syndrome) Additional Impression: Hypothyroidism ER Course Patient presented for chest pain. Differential diagnosis included but was not limited to acute coronary syndrome, pulmonary embolism, pneumonia, aortic dissection, shingles, pneumothorax, aortic dissection, esophageal rupture, pericarditis. EKG showed atrial paced rhythm rate of 73 CXR read by radiology showed : cardiac pacer remains in place. There is mild central vascular fullness. No santy infiltrate or edema seen. Cardiac and mediastinal silhouette are within normal limits. CP angles are sharp. The bony thorax appear unremarkable. Patient appears to have chest pain which is somewhat concerning for cardiac chest pain. Compared to previous EKG from March there are some T wave changes.patient denies any prior history of DVT but states she has had previous episodes of atrial fibrillation. Patient was given aspirin as well as Lovenox and nitroglycerin. She continued to have pain was given morphine. Given the patient's prolonged time to presentation and negative initial troponin this is unlikely to represent acute DC. A rapid cover test was ordered and patient was given breathing treatment.Repeat troponin was also noted to be 0. Dr. Kun Steele was contacted for inpatient management due to capitated physician Labs Test 09/22/19 13:24 Sodium Level 142 MMOL/L (136-145) Potassium Level 3.8 MMOL/L (3.5-5.1) Chloride Level 105 MMOL/L (98-107) Carbon Dioxide Level 32 MMOL/L (21-32) Anion Gap 5 mmol/L (5-15) Blood Urea Nitrogen 12 mg/dL (7-18) Creatinine 0.9 MG/DL (0.55-1.30) Estimat Glomerular Filtration Rate > 60 mL/min (>60) Glucose Level 88 MG/DL (74-106) Calcium Level 9.5 MG/DL (8.5-10.1) EKG Diagnostic Results Rate: normal Rhythm: NSR ST Segments: other - nonSpecific ST changes paced rhythm Last Vital Signs Date Time Temp Pulse Resp B/P (MAP) Pulse Ox O2 Delivery O2 Flow Rate FiO2 09/22/19 13:12 98.8 61 18 138/88 96 Room Air Status: improved Disposition: ADMITTED INPATIENT Condition: Stable Referrals: [facility],REFERRING (PCP) Rowdy Aaron MD Sep 22, 2019 14:04
[2019-09-22 14:05] LABS: ALANINE AMINOTRANSFERASE 19 U/L (12-78); ALBUMIN 4.3 G/DL (3.4-5.0); ALBUMIN/GLOBULIN RATIO 1.2 (1.0-2.7); ALKALINE PHOSPHATASE 101 U/L (46-116); ASPARTATE AMINO TRANSFERASE 17 U/L (15-37); BILIRUBIN,TOTAL 0.4 MG/DL (0.2-1.0)
[2019-09-22] MEDS ORDERED: Albuterol ud Inhalation HHN ONE (14:30)
[2019-09-22] MEDS ORDERED: Morphine Sulfate 2mg/ml Inj(IV/IM USE ONLY) IVP ONE (14:30)
[2019-09-22 15:10] VITALS: BP 134/82
[2019-09-22] MEDS ORDERED: Albuterol ud Inhalation ONE (15:45)
[2019-09-22 17:10] VITALS: BP 136/81
[2019-09-22 17:40] VITALS: BP 142/95
[2019-09-22] MEDS ORDERED: SYNTHROID100 MCG ORAL (18:32)
[2019-09-22] MEDS ORDERED: METOPROLOL SUCC50 MG ORAL (18:32)
[2019-09-22] MEDS ORDERED: Omnipaque 350 100ml vial INJ PRN (19:45)
[2019-09-22 20:00] VITALS: BP 134/77
[2019-09-22] MEDS: Morphine Sulfate 2mg/ml Inj(IV/IM USE ONLY) IVP PRN (20:53)
[2019-09-22] MEDS ORDERED: Atorvastatin 20mg tab ORAL SCH (21:00)
--- NOTE | 2019-09-22 21:51 | Diagnostic Imaging Report ---
EXAM: CT Angiography Chest With Intravenous Contrast CLINICAL HISTORY: PAIN TECHNIQUE: Axial computed tomographic angiography images of the chest with intravenous contrast. CTDI is 67.60 mGy and DLP is 232.60 mGy-cm. One or more of the following dose reduction techniques were used: automated exposure control, adjustment of the mA and/or kV according to patient size, use of iterative reconstruction technique. MIP reconstructed images were created and reviewed. COMPARISON: No relevant prior studies available. FINDINGS: Pulmonary arteries: No pulmonary embolus. Aorta: No thoracic aortic dissection or aneurysm. Lungs: Dependent atelectasis. No mass. Pleural space: Unremarkable. No significant effusion. No pneumothorax. Heart: Unremarkable. No cardiomegaly. No significant pericardial effusion. No evidence of RV dysfunction. Bones/joints: No acute fracture. No dislocation. Soft tissues: Unremarkable. Lymph nodes: Unremarkable. No enlarged lymph nodes. Tubes, lines and devices: Dual-chamber cardiac pacemaker/AICD. IMPRESSION: 1. No thoracic aortic dissection or aneurysm. 2. No pulmonary embolus.
[2019-09-23] VITALS: BP 124/76
[2019-09-23 04:00] VITALS: BP 132/81
[2019-09-23] MEDS: Morphine Sulfate 2mg/ml Inj(IV/IM USE ONLY) IVP PRN ×2 (06:15→09:30)
[2019-09-23 07:16] LABS: ANION GAP 5 mmol/L (5-15); BLOOD UREA NITROGEN 14 mg/dL (7-18); CALCIUM 9.2 MG/DL (8.5-10.1); CARBON DIOXIDE 31 MMOL/L (21-32); CHLORIDE 105 MMOL/L (98-107); PHOSPHORUS 3.5 MG/DL (2.5-4.9); POTASSIUM 3.5 MMOL/L (3.5-5.1); SODIUM 141 MMOL/L (136-145)
[2019-09-23 07:18] LABS: HEMATOCRIT 35.8 % (37.0-47.0); HEMOGLOBIN 11.7 G/DL (12.0-16.0); MEAN CORPUSCULAR VOLUME 90 FL (80-99); PLATELET COUNT 140 K/UL (150-450); RED BLOOD COUNT 3.98 M/UL (4.20-5.40); RED CELL DISTRIBUTION WIDTH 13.1 % (11.6-14.8); WHITE BLOOD COUNT 2.3 K/UL (4.8-10.8)
[2019-09-23 08:00] VITALS: BP 109/59
[2019-09-23] MEDS ORDERED: Metoprolol Succinate XL 50mg tab ORAL SCH (09:00)
[2019-09-23] MEDS ORDERED: hydroCHLOROthiazide 25mg cap ORAL SCH (09:00)
[2019-09-23] MEDS ORDERED: Aspirin Baby 81mg ORAL SCH (09:00)
[2019-09-23 09:58] VITALS: BP 118/74
[2019-09-23] MEDS: Nitroglycerin Subl 0.4mg tab SL PRN ×3 (10:43→11:07)
[2019-09-23 10:48] VITALS: BP 139/90
[2019-09-23 12:00] VITALS: BP 140/82
--- NOTE | 2019-09-23 17:45 | History and Physical Report ---
DATE OF ADMISSION: 09/22/2019 HISTORY OF PRESENT ILLNESS: This is a 53-year-old female who came to the hospital with chest pain. The patient states this symptoms began more than 24 hours ago. She states she has been having episodic chest pain for the last several months. She reports she is established with Dr. Cobos at [phone] who is her regular spooler. She thinks she had a stent placed in 2006 and had a recent stress test less 8 months ago. stress test was normal. She also reports that she has a pacemaker in place, which was placed many years ago. She takes current medications reviewed below. At this point, she is stating she is feeling better. PAST MEDICAL HISTORY: Permanent pacemaker, CAD, hypertension. She reports a previous history of CVA as well as atrial fibrillation HOME MEDICATIONS: Reviewed and reconciled in chart. Aspirin, Lipitor, hydrochlorothiazide, Synthroid, metoprolol. PAST SURGICAL HISTORY: . REVIEW OF SYSTEMS: Denies any headaches, hematemesis, melena, or hematochezia. PHYSICAL EXAMINATION: GENERAL: Reveals a 53-year-old female. VITAL SIGNS: Blood pressure is 140/80, heart 64, respiratory rate 20, she is afebrile. HEENT: Unremarkable. CHEST: Clear breath sounds bilaterally. ABDOMEN: Soft. EXTREMITIES: There is no edema. NEUROLOGIC: Nonfocal. LABORATORY DATA: Lab testing shows normal CBC with exception of white count 2.3, hemoglobin 11.7. Chemistry normal. Troponin negative x3. Coags are negative. IMAGING STUDIES: She underwent CT pulmonary angiogram which was negative for aortic dissection or any pulmonary embolism. Lung gore were clear. IMPRESSION: 1. Atypical chest pain. 2. Doubt ACS given serial negative troponin. 3. Permanent pacemaker. 4. Hypertension. DISCUSSION: We will at this point allow discharge as she reports that the pain has subsided and her troponins are negative x3. She is established with Dr. Cobos, Cardiology. The patient is keen on following with Dr. Centeno. I have tried calling him as well; however, his phone service does not appear to be answering the phone. I have also reported issue to her insurance company who will also ensure the patient has expeditious followup. Kun Steele M.D. DR: David JOB#: [id number] CC:
--- NOTE | 2019-09-24 12:56 | Discharge Summary ---
Discharge Summary Discharge Summary _ DATE OF ADMISSION: 09/22/2019 DATE OF DISCHARGE: 09/23/2019 DISCHARGED BY: Dr. Steele REASON FOR ADMISSION: 53 years old female with past medical history of congestive heart failure, atrial fibrillation, hypothyroidism, hypertension, status post pacemaker, history of CVA 2010 , presented to emergency department with chest pain. Patient reported constant pain for 1 day. Patient reported taking nitroglycerin without improvement of pain. No fever, no chills. No vomiting. Patient denied cough. No shortness of breath. No leg pain or swelling. No prior cardiac surgery . Patient was not on any anticoagulation. Upon evaluation vital signs were stable. Laboratory work-up revealed leukopenia with WBC 2.6, stable hemoglobin , hematocrit and platelet count. Troponin negative. Stable electrolytes , renal parameters LFT. TSH within normal limits. D-dimer slightly elevated 0.83 . Chest x-ray revealed no acute cardiopulmonary pathology. Patient subsequently admitted for further management. HOSPITAL COURSE: Patient admitted to telemetry floor. Troponin were negative. EKG showed no acute ischemic changes. Echocardiogram revealed preserved ejection fraction. No evidence of wall motion abnormality. No evidence of left ventricular hypertrophy. Patient was continued with antiplatelet therapy with aspirin and beta-blockade. Nitroglycerin was on board as needed. Blood pressure was managed with beta-mumtaz and hydrochlorothiazide. Statin continued. CTA of the chest demonstrated no evidence of acute PE. No thoracic or aortic dissection or aneurysm. Patient has outpatient layout technician that she follows. Patient was reminded to see layout technician within a week. Chest pain was felt to be atypical. Patient was discussed with her insurance company, so patient will have a prompt follow-up. Levothyroxine current dose continued , given stable TSH and free T4. Pain management was addressed as needed. Pain subsided. Patient clinically stabilized and was ready for discharge. Due to rapid and unexpected improvement in patient's condition, the patient was discharged in one day. FINAL DIAGNOSES: Atypical chest pain Permanent pacemaker Hypertension DISCHARGE MEDICATIONS: See Medication Reconciliation list. DISCHARGE INSTRUCTIONS: Patient was discharged home. Follow-up with outpatient layout technician. I have been assigned to dictate discharge summary for this account. I was not involved in the patient's management. Gaye Chung NP Sep 24, 2019 12:56
== END 2019-09-23 14:26 | disposition home or self-care (01) | DRG 313 ==
LOC: EMR 13:56 → EDBEDREQ 14:09 → 2E 14:46 → EDBEDREQ 16:12
DX: R07.89 Other chest pain (principal); I11.0 Hypertensive heart disease with heart failure; I50.9 Heart failure, unspecified; E03.9 Hypothyroidism, unspecified; Z95.0 Presence of cardiac pacemaker; Z86.73 Personal history of transient ischemic attack (TIA), and cerebral infarction without residual deficits; I48.91 Unspecified atrial fibrillation; Z79.82 Long term (current) use of aspirin
CPT/HCPCS: 36415; 71045; 71275; 80048; 80053; 83735; 83880; 84100; 84439; 84443; 84484; 85007; 85025; 85379; 85610; 85730; 93005; 93306; 94640; 96374; 99285; U0002